=== PATIENT | female | born 1955 | race Caucasian/White ===

== ENCOUNTER 2017-01-01 23:25 | Emergency (ER) | payer MEDICARE ==
[~2017-01-01 23:25] MED LIST: ALLO100T PO; CLON0.2T PO; DEPA500T PO; FURO20TA PO; GABA600T PO; GLIP5TAB8 PO; K-TA10TA PO; LAMO100T PO; LISD70 PO; LORA1TAB12 PO; MOBI15TA PO; OXYC1TAB35 PO; SIMV20TA PO; VERA1TAB10 PO; ZOLP10TA3 PO
[2017-01-01 23:27] VITALS: BP 227/93; RESP 16; TEMP 97.1; O2SAT 97
[2017-01-02] VITALS: BP 192/100; PULSE 107
[2017-01-02] MEDS ORDERED: diphenhydrAMINE HCL 50 MG/ML VIAL IV PUSH ONE (00:15)
[2017-01-02] MEDS ORDERED: ACETAMINOPHEN 325 MG TAB PO ONE (00:15)
[2017-01-02] MEDS ORDERED: PROCHLORPERAZINE INJ 10 MG/2 ML VIAL IV PUSH ONE (00:15)
[2017-01-02 00:31] LABS: AUTOMATED NEUTROPHIL # 5.9 TH/MM3 (1.8-7.7); BASOPHIL # 0.1 TH/MM3 (0-0.2); BASOPHIL % 0.7 % (0.0-2.0); EOSINOPHIL # 0.4 TH/MM3 (0-0.4); EOSINOPHIL % 4.2 % (0.0-4.0); HEMATOCRIT 39.5 % (35.0-46.0); HEMO FLAGS DIFF FINAL; LYMPH % 28.8 % (9.0-44.0); LYMPHOCYTE # 2.9 TH/MM3 (1.0-4.8); MEAN CELL VOLUME 87.8 FL (80.0-100.0); MEAN CORPUSCULAR HEMOGLOBIN 29.4 PG (27.0-34.0); MEAN CORPUSCULAR HGB CONC 33.4 % (32.0-36.0); MONO % 7.5 % (0.0-8.0); NEUT % 58.8 % (16.0-70.0); PLATELET COUNT 277 TH/MM3 (150-450); RED CELL DISTRIBUTION WIDTH 13.9 % (11.6-17.2); WHITE BLOOD COUNT 10.1 TH/MM3 (4.0-11.0)
[2017-01-02 00:43] LABS: APTT (PATIENT) 27.8 SEC (24.3-30.1); PROTHROMBIN TIME - PATIENT 11.5 SEC (9.8-11.6)
--- NOTE | 2017-01-02 00:51 | RADRPT ---
EXAM DATE/TIME: 01/02/2017 00:24 [facility] COMPARISON: CHEST PA & LAT, July 12, 2015, 17:39. INDICATIONS : High blood pressure with headache and dizziness. MEDICAL HISTORY : Diabetes mellitus type II. Hypertension Hypercholesterolemia. GERD, Uterine cancer SURGICAL HISTORY : Cholecystectomy. Hysterectomy. ENCOUNTER: Initial ACUITY: 1 day PAIN SCORE: 7/10 LOCATION: Bilateral chest FINDINGS: A single view of the chest demonstrates the lungs to be symmetrically aerated without evidence of mas s, infiltrate or effusion. The cardiomediastinal contours are unremarkable. Osseous structures are intact. CONCLUSION: No acute disease. Richard Olivares MD on January 02, 2017 at 0:49 Board Certified Radiologist. This report was verified electronically.
[2017-01-02 00:56] LABS: ALKALINE PHOSPHATASE 153 U/L (45-117); TOTAL BILIRUBIN ADULT 0.3 MG/DL (0.2-1.0)
[2017-01-02 01:00] VITALS: BP 187/103; PULSE 107
[2017-01-02 01:00] LABS: ALT (GPT) 49 U/L (10-53); ANION GAP 7 MEQ/L (5-15); AST (GOT) 38 U/L (15-37); BICARBONATE 31.7 MEQ/L (21.0-32.0); BLOOD UREA NITROGEN 14 MG/DL (7-18); CHLORIDE 102 MEQ/L (98-107); GLOMERULAR FILTRATION RATE 70 ML/MIN (>89); SODIUM (NA) 141 MEQ/L (136-145)
[2017-01-02] MEDS ORDERED: LABETALOL HCL 100 MG/20 ML VIAL IV PUSH ONE (01:00)
--- NOTE | 2017-01-02 01:27 | RADRPT ---
EXAM DATE/TIME: 01/02/2017 01:12 [facility] COMPARISON: CT BRAIN W/O CONTRAST, June 02, 2016, 19:53. INDICATIONS : Cephalgia and dysphasia. RADIATION DOSE: 41.74 CTDIvol (mGy) MEDICAL HISTORY : Gastroesophageal reflux disease. Hernia, hiatal. Diabetes mellitus type 2.Hypertension. Cervical canc er. SURGICAL HISTORY : Hysterectomy. Cholecystectomy. ENCOUNTER: Initial ACUITY: 1 day PAIN SCALE: 10/10 LOCATION: cranial TECHNIQUE: Multiple contiguous axial images were obtained of the head. Using automated exposure control and adj ustment of the mA and/or kV according to patient size, radiation dose was kept as low as reasonably a chievable to obtain optimal diagnostic quality images. FINDINGS: CEREBRUM: The ventricles are normal for age. No evidence of midline shift, mass lesion, hemorrhage or acute in farction. No extra-axial fluid collections are seen. POSTERIOR FOSSA: The cerebellum and brainstem are intact. The 4th ventricle is midline. The cerebellopontine angle i s unremarkable. EXTRACRANIAL: The visualized portion of the orbits is intact. SKULL: The calvaria is intact. No evidence of skull fracture. CONCLUSION: Unremarkable noncontrast CT. Richard Olivares MD on January 02, 2017 at 1:25 Board Certified Radiologist. This report was verified electronically.
[2017-01-02 02:00] VITALS: BP 195/85
[2017-01-02 02:15] VITALS: BP 151/68; PULSE 94
[2017-01-02 02:30] VITALS: BP 144/55; PULSE 86
--- NOTE | 2017-01-02 02:39 | PD ---
HPI Chief Complaint: Hypertension Time Seen by Provider: 23:56 Travel History International Travel<30 days: No Contact w/Intl Traveler<30days: No Traveled to known affect area: No History of Present Illness HPI Patient is a 61 year old female who comes in complaining of headache and dizziness. Per , he brought her in because of high blood pressure. She chronically has headaches and dizziness. She takes oxycodone q 3 hrs for pain. She has not had any head trauma. She denies nausea or vomiting. She denies chest pain. Her says that she has been having issues controlling her blood pressure and was started on a new medication by her doctor. He says a visiting nurse was coming to the house and monitoring her blood pressure and advised him to take it twice per day and come to the ED if it got too high. He was concerned when he got readings in the 190s systolic. PFSH Past Medical History Bipolar Disorder: Yes Depression: Yes Cancer: Yes (CERVICAL/ UTERINE CA) Cardiovascular Problems: No High Cholesterol: Yes Diabetes: Yes Patient Takes Glucophage: No Diminished Hearing: No Endocrine: No Gastrointestinal Disorders: Yes (GERD) GERD: Yes Genitourinary: No Hepatitis: No Hiatal Hernia: Yes Hypertension: Yes Immune Disorder: No Musculoskeletal: Yes (BACK PAIN, ARTHRITIS) Neurologic: Yes (VERTIGO, CHARLIE. LEG PAIN) Psychiatric: Yes (CLAUSTRAPHOBIA, BIPOLAR) Reproductive: No Respiratory: Yes (SLEEP APNEA (NO CPAP)) Sleep Apnea: Yes (no cpap) Thyroid Disease: No Tetanus Vaccination: Unknown Menopausal: Yes Past Surgical History Abdominal Surgery: Yes (LAP NICANOR) AICD: No Cholecystectomy: Yes Gynecologic Surgery: Yes (TAHBSO) Hysterectomy: Yes Joint Replacement: No Oral Surgery: Yes (all her teeth removed) Pacemaker: No Other Surgery: Yes (2 back surg) Social History Alcohol Use: No Tobacco Use: No (quit 2 yrs ago) Substance Use: No Allergies-Medications (Allergen,Severity, Reaction): Coded Allergies: Betadine (Unverified Allergy, Severe, RASH, HIVES, 01/01/17) Morphine (Unverified Allergy, Severe, RESTLESS, 01/01/17) Reported Meds & Prescriptions Reported Meds & Active Scripts Active Reported Oxycodone-Acetaminophen 7.5-325 mg Tab 1 Tab PO Q4H PRN Lorazepam 1 Mg Tab 1 Mg PO HS PRN Mobic (Meloxicam) 15 Mg Tab 15 Mg PO DAILY Zolpidem (Zolpidem Tartrate) 10 Mg Tab 10 Mg PO HS PRN Verapamil ER (Verapamil HCl) 180 Mg Tab 360 Mg PO DAILY Furosemide 20 Mg Tab 20 Mg PO DAILY Lamotrigine 100 Mg Tab 100 Mg PO DAILY Vyvanse (Lisdexamfetamine Dimesylate) 70 Mg Cap 70 Mg PO DAILY Allopurinol 100 Mg Tab 100 Mg PO DAILY K-Tab (Potassium Chloride) 10 Meq Tab 10 Meq PO DAILY Gabapentin 600 Mg Tab 600 Mg PO BID Glipizide 5 Mg Tab 5 Mg PO BIDAC Take 30 minutes before a meal [id number] M1 500 Mg Tab 1,000 Mg PO HS Z.0.clonidine Hcl0.2 0.2 Mg Tab 0.2 Mg PO BID [id number] Mg 20 Mg Tab 20 Mg PO HS Review of Systems Except as stated in HPI: all other systems reviewed are Neg General / Constitutional: No: Fever, Chills Eyes: No: Blurred Vision HENT: Positive: Headaches Cardiovascular: No: Chest Pain or Discomfort Gastrointestinal: No: Nausea, Vomiting Musculoskeletal: Positive: Edema, No: Myalgias Skin: No Rash, No Change in Pigmentation Neurologic: Positive: Dizziness, No: Weakness Physical Exam Narrative GENERAL: Awake and alert, in no acute distress. SKIN: Focused skin assessment warm/dry. HEAD: Atraumatic. Normocephalic. EYES: Pupils equal and round. No scleral icterus. Extraocular movements intact. ENT: Mucous membranes pink and moist. NECK: Trachea midline. No JVD. CARDIOVASCULAR: Regular rate and rhythm. No murmur appreciated. RESPIRATORY: No accessory muscle use. Clear to auscultation. Breath sounds equal bilaterally. GASTROINTESTINAL: Abdomen soft, non-tender, nondistended. MUSCULOSKELETAL: No obvious deformities. No clubbing. No cyanosis. Edema bilateral feet. NEUROLOGICAL: Awake and alert. No obvious cranial nerve deficits. Motor grossly within normal limits. PSYCHIATRIC: Appropriate mood and affect; insight and judgment normal. Data Data Last Documented VS Vital Signs Date Time Temp Pulse Resp B/P Pulse Ox O2 Delivery O2 Flow Rate FiO2 01/01/17 23:27 97.1 16 227/93 97 Room Air Orders Complete Blood Count With Diff (01/02/17 00:07) Comprehensive Metabolic Panel (01/02/17 00:07) Act Partial Throm Time (Ptt) (01/02/17 00:07) Prothrombin Time / Inr (Pt) (01/02/17 00:07) Ct Brain W/O Iv Contrast(Rout) (01/02/17 ) Electrocardiogram (01/02/17 ) Troponin I (01/02/17 00:07) Diphenhydramine Inj (Benadryl Inj) (01/02/17 00:15) Prochlorperazine Inj (Compazine Inj) (01/02/17 00:15) Acetaminophen (Tylenol) (01/02/17 00:15) Iv Access Insert/Monitor (01/02/17 00:07) Ecg Monitoring (01/02/17 00:07) B-Type Natriuretic Peptide (01/02/17 00:12) Chest, Single Ap (01/02/17 ) Labetalol Inj (Trandate Inj) (01/02/17 01:00) Labs Laboratory Tests Test 01/02/17 00:10 White Blood Count 10.1 TH/MM3 Red Blood Count 4.50 MIL/MM3 Hemoglobin 13.2 GM/DL Hematocrit 39.5 % Mean Corpuscular Volume 87.8 FL Mean Corpuscular Hemoglobin 29.4 PG Mean Corpuscular Hemoglobin 33.4 % Concent Red Cell Distribution Width 13.9 % Platelet Count 277 TH/MM3 Mean Platelet Volume 8.2 FL Neutrophils (%) (Auto) 58.8 % Lymphocytes (%) (Auto) 28.8 % Monocytes (%) (Auto) 7.5 % Eosinophils (%) (Auto) 4.2 % Basophils (%) (Auto) 0.7 % Neutrophils # (Auto) 5.9 TH/MM3 Lymphocytes # (Auto) 2.9 TH/MM3 Monocytes # (Auto) 0.8 TH/MM3 Eosinophils # (Auto) 0.4 TH/MM3 Basophils # (Auto) 0.1 TH/MM3 CBC Comment DIFF FINAL Differential Comment Prothrombin Time 11.5 SEC Prothromb Time International 1.0 RATIO Ratio Activated Partial 27.8 SEC Thromboplast Time Sodium Level 141 MEQ/L Potassium Level 4.0 MEQ/L Chloride Level 102 MEQ/L Carbon Dioxide Level 31.7 MEQ/L Anion Gap 7 MEQ/L Blood Urea Nitrogen 14 MG/DL Creatinine 0.83 MG/DL Estimat Glomerular Filtration 70 ML/MIN Rate Random Glucose 174 MG/DL Calcium Level 9.6 MG/DL Total Bilirubin 0.3 MG/DL Aspartate Amino Transf 38 U/L (AST/SGOT) Alanine Aminotransferase 49 U/L (ALT/SGPT) Alkaline Phosphatase 153 U/L Troponin I LESS THAN 0.02 NG/ML Total Protein 7.2 GM/DL Albumin 3.6 GM/DL MDM Medical Decision Making Medical Screen Exam Complete: Yes Emergency Medical Condition: Yes Medical Record Reviewed: Yes Interpretation(s) ECG shows sinus tachycardia at 104, no ST elevation or depression, a lot of artifact. Differential Diagnosis Headache versus hypertension versus vertigo versus electrolyte abnormality Narrative Course Patient is a 61-year-old female comes in complaining of high blood pressure. She says she has a headache and dizziness, but this is chronic for her. Exam shows no acute abnormalities. IV established, labs sent. Labs show no acute abnormalities. CT head performed shows no acute abnormalities. Chest x-ray performed shows no acute abnormalities. Patient given Tylenol, Benadryl, Compazine. She reports resolution of her symptoms. She received 10 mg of labetalol which brought her blood pressure down. She would like to go home. She is advised follow-up with her doctor. Advised to return to the ED as needed for any worsening symptoms. Diagnosis Primary Impression: High blood pressure Qualified Code: I10 - Essential hypertension Additional Impression: Headache Qualified Code: R51 - Acute nonintractable headache, unspecified headache type Patient Instructions: General Instructions, Hypertension (ED) Additional Instructions: Follow-up with your doctor regarding her blood pressure. He received labetalol today that brought her blood pressure down. Take Tylenol or ibuprofen as needed for headaches. Return to the ED as needed for any worsening symptoms. Disposition: 01 DISCHARGE HOME Condition: Stable Sarah Shelton MD Jan 02, 2017 02:38
--- NOTE | 2017-01-02 09:34 | EKG ---
Date Performed: 01/02/2017 Time Performed: 00:20:22 PTAGE: 61 years EKG: SINUS TACHYCARDIA NONSPECIFIC T-WAVE ABNORMALITY ABNORMAL RHYTHM ECG NO PREVIOUS TRACING DOCTOR: Tamir Steel Interpretating Date/Time 01/02/2017 09:29:25
== END 2017-01-02 03:24 | disposition home or self-care (01) ==
LOC: NEPC 23:25
DX: I10 Essential (primary) hypertension (principal); R51 Headache; R94.31 Abnormal electrocardiogram [ECG] [EKG]; Z85.41 Personal history of malignant neoplasm of cervix uteri; Z85.42 Personal history of malignant neoplasm of other parts of uterus
CPT/HCPCS: 70450; 71010; 80053; 83880; 84484; 85025; 85610; 85730; 93005; 96374; 96375; 99285; J0780; J1200

== ENCOUNTER 2017-02-06 18:29 | Inpatient (IN) | payer MEDICARE ==
[~2017-02-06] VITALS: Ht 162.6 cm; Wt 115.0 kg
[2017-02-06 18:38] VITALS: BP 145/99; PULSE 93; RESP 18; TEMP 98.1; O2SAT 94
[2017-02-06] MEDS ORDERED: NALOXONE HCL 2 MG/2 ML VIAL ONE (18:38)
[2017-02-06 19:02] VITALS: RESP 18; O2SAT 99
--- NOTE | 2017-02-06 19:20 | PD ---
Data Data Last Documented VS Vital Signs Date Time Temp Pulse Resp B/P Pulse Ox O2 Delivery O2 Flow Rate FiO2 02/06/17 20:06 97 18 99 Nasal Cannula 3 02/06/17 18:38 98.1 145/99 Orders Naloxone Inj (Narcan Inj) (02/06/17 18:38) Electrocardiogram (02/06/17 18:47) Complete Blood Count With Diff (02/06/17 18:47) Comprehensive Metabolic Panel (02/06/17 18:47) Prothrombin Time / Inr (Pt) (02/06/17 18:47) Act Partial Throm Time (Ptt) (02/06/17 18:47) Lactic Acid Sepsis Protocol (02/06/17 18:47) Magnesium (Mg) (02/06/17 18:47) Urinalysis - C+S If Indicated (02/06/17 18:47) Blood Culture (02/06/17 18:47) Chest, Single Ap (02/06/17 18:47) Blood Glucose (02/06/17 18:47) Ecg Monitoring (02/06/17 18:47) Iv Access Insert/Monitor (02/06/17 18:47) Oximetry (02/06/17 18:47) Oxygen Administration (02/06/17 18:47) Ct Brain W/O Iv Contrast(Rout) (02/06/17 ) Naloxone Inj (Narcan Inj) (02/06/17 19:30) Insert Temp Sensing Ingram Cath (02/06/17 19:34) B-Type Natriuretic Peptide (02/06/17 20:23) Vancomycin Inj (Vancomycin Inj) (02/06/17 20:52) Piperacil-Tazo 4.5 Gm Premix (Zosyn 4.5 (02/06/17 20:52) Admit Order (Ed Use Only) (02/06/17 20:52) Labs Laboratory Tests Test 02/06/17 19:00 White Blood Count 13.8 TH/MM3 Red Blood Count 4.61 MIL/MM3 Hemoglobin 13.5 GM/DL Hematocrit 40.7 % Mean Corpuscular Volume 88.1 FL Mean Corpuscular Hemoglobin 29.3 PG Mean Corpuscular Hemoglobin 33.3 % Concent Red Cell Distribution Width 14.0 % Platelet Count 249 TH/MM3 Mean Platelet Volume 8.5 FL Neutrophils (%) (Auto) 63.7 % Lymphocytes (%) (Auto) 23.6 % Monocytes (%) (Auto) 7.6 % Eosinophils (%) (Auto) 3.4 % Basophils (%) (Auto) 1.7 % Neutrophils # (Auto) 8.8 TH/MM3 Lymphocytes # (Auto) 3.3 TH/MM3 Monocytes # (Auto) 1.0 TH/MM3 Eosinophils # (Auto) 0.5 TH/MM3 Basophils # (Auto) 0.2 TH/MM3 CBC Comment DIFF FINAL Differential Comment Prothrombin Time 12.4 SEC Prothromb Time International 1.1 RATIO Ratio Activated Partial 28.0 SEC Thromboplast Time Urine Color YELLOW Urine Turbidity HAZY Urine pH 5.0 Urine Specific [place] 1.012 Urine Protein NEG mg/dL Urine Glucose (UA) NEG mg/dL Urine Ketones NEG mg/dL Urine Occult Blood NEG Urine Nitrite NEG Urine Bilirubin NEG Urine Urobilinogen LESS THAN 2.0 MG/DL Urine Leukocyte Esterase NEG Urine RBC LESS THAN 1 /hpf Urine WBC 2 /hpf Urine Squamous Epithelial 1 /hpf Cells Urine Amorphous Sediment RARE Microscopic Urinalysis Comment CATH-CULT NOT IND Sodium Level 137 MEQ/L Potassium Level 5.2 MEQ/L Chloride Level 100 MEQ/L Carbon Dioxide Level 29.5 MEQ/L Anion Gap 8 MEQ/L Blood Urea Nitrogen 43 MG/DL Creatinine 2.51 MG/DL Estimat Glomerular Filtration 20 ML/MIN Rate Random Glucose 162 MG/DL Lactic Acid Level 1.3 mmol/L Calcium Level 9.5 MG/DL Magnesium Level 2.3 MG/DL Total Bilirubin 0.7 MG/DL Aspartate Amino Transf 125 U/L (AST/SGOT) Alanine Aminotransferase 69 U/L (ALT/SGPT) Alkaline Phosphatase 183 U/L B-Type Natriuretic Peptide LESS THAN 2 PG/ML Total Protein 7.6 GM/DL Albumin 3.6 GM/DL MDM Supervised Visit with DANA: Yes Narrative Course I, Dr. Michel], have reviewed the advance practice practitioner's documentation and am in agreement, met with the patient face to face, made the diagnosis, and the medical decision making was done by me. *My assessment and Findings: Patient 61-year-old female apparently on hospice for lewy body dementia presents emergency department with increasing altered mental status, she does have a kerry appearance of her skin mildly diaphoretic and almost clammy. Unable to provide most of her history her is in route, afebrile here but sepsis workup has been initiated, my opinion there is no indication for aggressive fluid resuscitation or antibiotics until source of infection has been identified I see no evidence of infection on her clinical exam. She may just have worsening dementia. Peggy WORTHINGTON is working up the patient and at shift change Dr. Mays is here to assist her. Dimitrios Michel MD Feb 06, 2017 19:20
[2017-02-06] MEDS ORDERED: HYDR-3133 PO (19:23)
[2017-02-06] MEDS ORDERED: PROP10TA6 PO (19:23)
[2017-02-06] MEDS ORDERED: DIPH2.5T60 PO (19:23)
[2017-02-06] MEDS ORDERED: BREX1TAB4 PO (19:23)
[2017-02-06] MEDS ORDERED: VALS1TAB65 PO (19:23)
[2017-02-06] MEDS ORDERED: MULT1TAB61 PO (19:23)
[2017-02-06] MEDS ORDERED: OXYC1CAP PO (19:23)
[2017-02-06] MEDS ORDERED: CYCL1TAB29 PO (19:23)
[2017-02-06] MEDS ORDERED: MEMA1CAP2 PO (19:23)
[2017-02-06] MEDS ORDERED: MORP1TAB25 PO (19:24)
[2017-02-06] MEDS ORDERED: SERO200T PO (19:24)
[2017-02-06 19:28] LABS: AUTOMATED NEUTROPHIL # 8.8 TH/MM3 (1.8-7.7); BASOPHIL # 0.2 TH/MM3 (0-0.2); BASOPHIL % 1.7 % (0.0-2.0); EOSINOPHIL # 0.5 TH/MM3 (0-0.4); EOSINOPHIL % 3.4 % (0.0-4.0); HEMATOCRIT 40.7 % (35.0-46.0); HEMO FLAGS DIFF FINAL; LYMPH % 23.6 % (9.0-44.0); LYMPHOCYTE # 3.3 TH/MM3 (1.0-4.8); MEAN CELL VOLUME 88.1 FL (80.0-100.0); MEAN CORPUSCULAR HEMOGLOBIN 29.3 PG (27.0-34.0); MEAN CORPUSCULAR HGB CONC 33.3 % (32.0-36.0); MONO % 7.6 % (0.0-8.0); NEUT % 63.7 % (16.0-70.0); PLATELET COUNT 249 TH/MM3 (150-450); RED BLOOD COUNT 4.61 MIL/MM3 (4.00-5.30); WHITE BLOOD COUNT 13.8 TH/MM3 (4.0-11.0)
[2017-02-06] MEDS ORDERED: NALOXONE HCL 2 MG/2 ML VIAL IV PUSH ONE (19:30)
[2017-02-06 19:38] LABS: BLOOD, URINE NEG (NEG); GLUCOSE,URINE NEG (NEG); KETONE, URINE NEG (NEG); NITRITE,URINE NEG (NEG); SQUAMOUS EPITHELIAL CELL URINE 1 /hpf (0-5); URINE COLOR YELLOW (YELLW/STRAW)
[2017-02-06 19:39] LABS: COMMENT (UR) CATH-CULT NOT IND; CULTURE IF INDICATED CATH CULTURE NOT IND
--- NOTE | 2017-02-06 19:42 | PD ---
HPI Chief Complaint: Altered Mental Status Time Seen by Provider: 18:50 Travel History International Travel<30 days: No Contact w/Intl Traveler<30days: No Traveled to known affect area: No History of Present Illness HPI Patient is a 61-year-old female presenting to the emergency department for evaluation for altered mental status. Per EMS patient has been sleeping fairly consistently for the last 2 days, she woke up this evening and although she is alert and oriented 4 her speech appears to be slurred. She has had increased swelling in her legs with a redness to her lower extremities. Currently on hospice for early onset of dementia. Patient's past medical history significant for neuropathy, anxiety, diabetes, hypertension, hyperlipidemia, peripheral edema. Patient takes lorazepam, Flexeril, oxycodone, morphine at home which is dosed by her significant other. PFSH Past Medical History Bipolar Disorder: Yes Depression: Yes Cancer: Yes (CERVICAL/ UTERINE CA) Cardiovascular Problems: No High Cholesterol: Yes Dementia: Yes (LEWY BODY DEMENTIA) Diabetes: Yes Patient Takes Glucophage: No Diminished Hearing: No Endocrine: No GERD: Yes Genitourinary: No Hepatitis: No Hiatal Hernia: Yes Hypertension: Yes Immune Disorder: No Neurologic: Yes (VERTIGO) Reproductive: No Sleep Apnea: Yes (no cpap) Thyroid Disease: No Menopausal: Yes Past Surgical History AICD: No Cholecystectomy: Yes Hysterectomy: Yes Joint Replacement: No Oral Surgery: Yes (all her teeth removed) Pacemaker: No Other Surgery: Yes (2 back surg) Social History Alcohol Use: No Tobacco Use: No (quit 2 yrs ago) Substance Use: No Allergies-Medications (Allergen,Severity, Reaction): Coded Allergies: Betadine (Unverified Allergy, Severe, RASH, HIVES, 02/06/17) Morphine (Unverified Allergy, Severe, RESTLESS, 02/06/17) Reported Meds & Prescriptions Reported Meds & Active Scripts Active Reported Morphine ER (Morphine Sulfate) 30 Mg Tab 30 Mg PO BID Seroquel (Quetiapine Fumarate) 200 Mg Tab 200 Mg PO HS Hydroxyzine HCl 25 Mg Tab 25 Mg PO QID PRN Diphenatol 2.5-0.025 mg (Diphenoxylate W/ Atropine) 1 Tab Tab 1 Tab PO DAILY PRN Oxycodone (Oxycodone HCl) 5 Mg Cap 5 Mg PO Q3HR PRN Flexeril (Cyclobenzaprine HCl) 10 Mg Tab 10 Mg PO DAILY PRN Rexulti (Brexpiprazole) 2 Mg Tab 2 Mg PO DAILY Namzaric (Memantine-Donepezil) 28-10 Mg Cap 1 Cap PO HS Centrum Silver Women Tablet (Multivit-Min/Iron/Folic/Lutein) 1 Each Tablet 1 Tab PO DAILY Valsartan 160 Mg Tab 160 Mg PO DAILY Propranolol (Propranolol HCl) 10 Mg Tab 10 Mg PO Q12HR Lorazepam 1 Mg Tab 1 Mg PO Q3HR PRN Mobic (Meloxicam) 15 Mg Tab 15 Mg PO DAILY Verapamil ER (Verapamil HCl) 180 Mg Tab 240 Mg PO DAILY Furosemide 20 Mg Tab 20 Mg PO DAILY Lamotrigine 100 Mg Tab 100 Mg PO DAILY Allopurinol 100 Mg Tab 100 Mg PO DAILY K-Tab (Potassium Chloride) 10 Meq Tab 10 Meq PO DAILY Gabapentin 600 Mg Tab 600 Mg PO BID Glipizide 5 Mg Tab 5 Mg PO BIDAC Take 30 minutes before a meal Clonidine Hcl (Clonidine HCl) 0.2 Mg Tab 0.2 Mg PO BID Simvastatin 20 Mg Tab 20 Mg PO HS Review of Systems ROS Limitations: Altered Mental Status Except as stated in HPI: all other systems reviewed are Neg Neurologic: Positive: Change in Mentation Physical Exam Narrative GENERAL: Obese, well-developed, drowsy female. Resting in no acute distress. SKIN: Warm and dry. HEAD: Atraumatic. Normocephalic. EYES: Pupils equal and round. No scleral icterus. No injection or drainage. ENT: No nasal bleeding or discharge. Mucous membranes pink and moist. NECK: Trachea midline. No JVD. CARDIOVASCULAR: Regular rate and rhythm. RESPIRATORY: No accessory muscle use. Diminished GASTROINTESTINAL: Abdomen obese, soft, non-tender, nondistended. Hepatic and splenic margins not palpable. Positive bowel sounds MUSCULOSKELETAL: Extremities without clubbing, cyanosis. Erythema and 2+ edema to bilateral lower extremities NEUROLOGICAL: Drowsy, arousable, alert and oriented 3. No obvious cranial nerve deficits. Motor grossly within normal limits. Five out of 5 muscle strength in the arms and legs. Slow speech. PSYCHIATRIC: Flat mood and affect; insight and judgment normal. Data Data Last Documented VS Vital Signs Date Time Temp Pulse Resp B/P Pulse Ox O2 Delivery O2 Flow Rate FiO2 02/06/17 20:06 97 18 99 Nasal Cannula 3 02/06/17 18:38 98.1 145/99 Orders Naloxone Inj (Narcan Inj) (02/06/17 18:38) Electrocardiogram (02/06/17 18:47) Complete Blood Count With Diff (02/06/17 18:47) Comprehensive Metabolic Panel (02/06/17 18:47) Prothrombin Time / Inr (Pt) (02/06/17 18:47) Act Partial Throm Time (Ptt) (02/06/17 18:47) Lactic Acid Sepsis Protocol (02/06/17 18:47) Magnesium (Mg) (02/06/17 18:47) Urinalysis - C+S If Indicated (02/06/17 18:47) Blood Culture (02/06/17 18:47) Chest, Single Ap (02/06/17 18:47) Blood Glucose (02/06/17 18:47) Ecg Monitoring (02/06/17 18:47) Iv Access Insert/Monitor (02/06/17 18:47) Oximetry (02/06/17 18:47) Oxygen Administration (02/06/17 18:47) Ct Brain W/O Iv Contrast(Rout) (02/06/17 ) Naloxone Inj (Narcan Inj) (02/06/17 19:30) Insert Temp Sensing Ingram Cath (02/06/17 19:34) B-Type Natriuretic Peptide (02/06/17 20:23) Vancomycin Inj (Vancomycin Inj) (02/06/17 20:52) Piperacil-Tazo 4.5 Gm Premix (Zosyn 4.5 (02/06/17 20:52) Admit Order (Ed Use Only) (02/06/17 20:52) Labs Laboratory Tests Test 02/06/17 19:00 White Blood Count 13.8 TH/MM3 Red Blood Count 4.61 MIL/MM3 Hemoglobin 13.5 GM/DL Hematocrit 40.7 % Mean Corpuscular Volume 88.1 FL Mean Corpuscular Hemoglobin 29.3 PG Mean Corpuscular Hemoglobin 33.3 % Concent Red Cell Distribution Width 14.0 % Platelet Count 249 TH/MM3 Mean Platelet Volume 8.5 FL Neutrophils (%) (Auto) 63.7 % Lymphocytes (%) (Auto) 23.6 % Monocytes (%) (Auto) 7.6 % Eosinophils (%) (Auto) 3.4 % Basophils (%) (Auto) 1.7 % Neutrophils # (Auto) 8.8 TH/MM3 Lymphocytes # (Auto) 3.3 TH/MM3 Monocytes # (Auto) 1.0 TH/MM3 Eosinophils # (Auto) 0.5 TH/MM3 Basophils # (Auto) 0.2 TH/MM3 CBC Comment DIFF FINAL Differential Comment Prothrombin Time 12.4 SEC Prothromb Time International 1.1 RATIO Ratio Activated Partial 28.0 SEC Thromboplast Time Urine Color YELLOW Urine Turbidity HAZY Urine pH 5.0 Urine Specific [place] 1.012 Urine Protein NEG mg/dL Urine Glucose (UA) NEG mg/dL Urine Ketones NEG mg/dL Urine Occult Blood NEG Urine Nitrite NEG Urine Bilirubin NEG Urine Urobilinogen LESS THAN 2.0 MG/DL Urine Leukocyte Esterase NEG Urine RBC LESS THAN 1 /hpf Urine WBC 2 /hpf Urine Squamous Epithelial 1 /hpf Cells Urine Amorphous Sediment RARE Microscopic Urinalysis Comment CATH-CULT NOT IND Sodium Level 137 MEQ/L Potassium Level 5.2 MEQ/L Chloride Level 100 MEQ/L Carbon Dioxide Level 29.5 MEQ/L Anion Gap 8 MEQ/L Blood Urea Nitrogen 43 MG/DL Creatinine 2.51 MG/DL Estimat Glomerular Filtration 20 ML/MIN Rate Random Glucose 162 MG/DL Lactic Acid Level 1.3 mmol/L Calcium Level 9.5 MG/DL Magnesium Level 2.3 MG/DL Total Bilirubin 0.7 MG/DL Aspartate Amino Transf 125 U/L (AST/SGOT) Alanine Aminotransferase 69 U/L (ALT/SGPT) Alkaline Phosphatase 183 U/L Total Protein 7.6 GM/DL Albumin 3.6 GM/DL MDM Medical Decision Making Medical Screen Exam Complete: Yes Emergency Medical Condition: Yes Interpretation(s) Vital Signs Date Time Temp Pulse Resp B/P Pulse Ox O2 Delivery O2 Flow Rate FiO2 02/06/17 19:02 99 Nasal Cannula 3 02/06/17 19:02 18 99 Nasal Cannula 3 02/06/17 18:38 98.1 93 18 145/99 94 Differential Diagnosis UTI versus sepsis versus cellulitis versus progression of dementia versus CVA versus metabolic abnormality Narrative Course Patient is a 61-year-old female presenting for evaluation of altered mental status. Patient is on several narcotic medications that could likely alter her mental status, Narcan 1 mg given in the emergency department after the patient was assessed. Patient had no significant change in her mental status after Narcan was administered. Urinary catheter placed, patient placed on telemetry monitoring and continuous pulse oximetry. Labs and imaging ordered and pending. Chest x-ray shows left lower lobe atelectasis CBC with a white count of 13.8 Chemistry with elevated BUN and creatinine 43/2.51, AST and ALT elevated 125/69 , potassium 5.2, lactic acid 1.3. CT brain is unremarkable Urinalysis is unremarkable Patient will be admitted due to altered mental status, acute renal failure, transaminitis. There was a question initially as to who would be admitting patient since she is under [facility] hospice care. Dr. Sanchez did accept admission. orders placed. Empiric antibiotics ordered Sepsis Criteria SIRS Criteria (2 or more): Heart rate over 90, WBC > 73380, < 4000 or > 10% bands Severe Sepsis (+one): Acute Oliguria/Renal Failure Diagnosis Primary Impression: SIRS (systemic inflammatory response syndrome) Additional Impressions: Altered mental status Qualified Code: R41.82 - Altered mental status, unspecified altered mental status type Acute renal failure Qualified Code: N17.9 - Acute renal failure, unspecified acute renal failure type Transaminitis Admitting Information Admitting Physician Requests: Admit Condition: Stable Peggy Nichols [facility] Feb 06, 2017 19:42
[2017-02-06 19:46] LABS: ALT (GPT) 69 U/L (10-53)
[2017-02-06 19:49] LABS: ALKALINE PHOSPHATASE 183 U/L (45-117); TOTAL BILIRUBIN ADULT 0.7 MG/DL (0.2-1.0)
--- NOTE | 2017-02-06 19:49 | RADRPT ---
EXAM DATE/TIME: 02/06/2017 19:28 [facility] COMPARISON: CT BRAIN W/O CONTRAST, January 02, 2017, 1:12. INDICATIONS : Lethargic and difficulty ambulating. RADIATION DOSE: 39.63 CTDIvol (mGy) MEDICAL HISTORY : Dementia. Hypertension. Diabetes mellitus type 2.Cervical cancer. Uterine cancer. SURGICAL HISTORY : Cholecystectomy. Hysterectomy. ENCOUNTER: Initial ACUITY: 1 day PAIN SCALE: 0/10 LOCATION: cranial TECHNIQUE: Multiple contiguous axial images were obtained of the head. Using automated exposure control and adj ustment of the mA and/or kV according to patient size, radiation dose was kept as low as reasonably a chievable to obtain optimal diagnostic quality images. DICOM format image data is available electro nically for review and comparison. FINDINGS: There is no evidence for intracranial hemorrhage, mass effect, mass lesions, edema, or extra-axial fl uid collections. The visualized bony structures appear intact. The ventricles are normal size for t he patient's age. There are no signs of acute infarction for technique. CONCLUSION: Unremarkable study. KJosé Brasher MD on February 06, 2017 at 19:46 Board Certified Radiologist. This report was verified electronically.
--- NOTE | 2017-02-06 19:53 | RADRPT ---
EXAM DATE/TIME: 02/06/2017 18:46 [facility] COMPARISON: CHEST SINGLE AP, January 02, 2017, 0:24. INDICATIONS : Wheezing MEDICAL HISTORY : Diabetes mellitus type II. Hypertension Hypercholesterolemia. GERD, SURGICAL HISTORY : Cholecystectomy. Hysterectomy. ENCOUNTER: Initial ACUITY: 1 day PAIN SCORE: 0/10 LOCATION: chest FINDINGS: Slight linear atelectasis is seen left lung base. There is no appreciable pleural effusion for techni que. Heart and mediastinum are unremarkable. CONCLUSION: Slight linear atelectasis is seen left lung base. Shirley Brasher MD on February 06, 2017 at 19:51 Board Certified Radiologist. This report was verified electronically.
[2017-02-06 20:01] LABS: ANION GAP 8 MEQ/L (5-15); AST (GOT) 125 U/L (15-37); BICARBONATE 29.5 MEQ/L (21.0-32.0); BLOOD UREA NITROGEN 43 MG/DL (7-18); CHLORIDE 100 MEQ/L (98-107); GLOMERULAR FILTRATION RATE 20 ML/MIN (>89); MAGNESIUM 2.3 MG/DL (1.5-2.5); SODIUM (NA) 137 MEQ/L (136-145)
[2017-02-06 20:02] LABS: POTASSIUM 5.2 MEQ/L (3.5-5.1)
[2017-02-06 20:07] LABS: INTERNATIONAL NORMALIZED RATIO 1.1 RATIO; PROTHROMBIN TIME - PATIENT 12.4 SEC (9.8-11.6)
[2017-02-06] MEDS ORDERED: PIPERACIL-TAZO 4.5 GM PREMIX 100 ML IV STA (20:52)
[2017-02-06] MEDS ORDERED: VANCOMYCIN INJ 1,000 MG in SODIUM CHLOR 0.9% 250 ML INJ 250 ML IV STA (20:52)
[2017-02-06 21:16] VITALS: BP 154/67; PULSE 102; RESP 20; TEMP 98.3; O2SAT 97
[2017-02-06] MEDS ORDERED: SODIUM CHLORIDE 0.9% FLUSH 10 ML FLUSH IV FLUSH PRN (22:15)
[2017-02-06] MEDS ORDERED: NALOXONE HCL 0.4 MG/ML AMP IV PRN (22:15)
[2017-02-06] MEDS ORDERED: SENNOSIDES 8.6 MG TAB PO PRN (22:15)
[2017-02-06] MEDS ORDERED: LACTULOSE SYRUP 20 GM/30 ML CUP PO PRN (22:15)
[2017-02-06] MEDS ORDERED: BISACODYL 10 MG SUPP RECTAL PRN (22:15)
[2017-02-06] MEDS ORDERED: MAGNESIUM HYDROXIDE SUSP 30 ML CUP PO PRN (22:15)
--- NOTE | 2017-02-06 22:20 | HHI.HP ---
HPI Service [facility] Hospitalists Primary Care Physician Osmin Caicedo M.D. Admission Diagnosis altered mental status, acute renal failure, transaminitis. Chief Complaint: altered mental status over last 36hours Travel History International Travel<30 Days: No Contact w/Intl Traveler <30 Da: No Traveled to Known Affected Are: No History of Present Illness Patient is a 61-year-old female presenting to the emergency department for evaluation for altered mental status. Per EMS patient has been sleeping fairly consistently for the last 2 days, she woke up this evening and although she is alert and oriented 4 her speech appears to be slurred. She has had increased swelling in her legs with a redness to her lower extremities. Currently on hospice for early onset of dementia. Patient's past medical history significant for neuropathy, anxiety, diabetes, hypertension, hyperlipidemia, peripheral edema. Patient takes lorazepam, Flexeril, oxycodone, morphine at home which is dosed by her significant other. According to Hospice just increased her morphine to 30 and he gave her one dose at 30 yesterday and seems to be associated with the confusion,also has increase in WBC count and does have bilateral cellulitis lower extremities with chronic edema and has been on diuretic therapy and lab also show renal insufficency with cr >2 . Patient for several months has had frequent falls hallucinations and has been seen by several doctors and about 6 months ago was DX with lewy body dementia and is on multiple medicines from both neurology and psychiatry. Review of Systems ROS Limitations: Altered Mental Status Constitutional: COMPLAINS OF: Fatigue Cardiovascular: COMPLAINS OF: Lower Extremity Edema Other redness lower extremities Past Family Social History Past Medical History Lewy body dementia-on hospice for that reason,hypertension,hx ca uterine dm, bipolar disorder chronic pain Past Surgical History gallbladder,hysterectomy,teeth removed 2 back surgeries Reported Medications Morphine ER (Morphine Sulfate) 30 Mg Tab 30 Mg PO BID Seroquel (Quetiapine Fumarate) 200 Mg Tab 200 Mg PO HS Hydroxyzine HCl 25 Mg Tab 25 Mg PO QID PRN Diphenatol 2.5-0.025 mg (Diphenoxylate W/ Atropine) 1 Tab Tab 1 Tab PO DAILY PRN Oxycodone (Oxycodone HCl) 5 Mg Cap 5 Mg PO Q3HR PRN Flexeril (Cyclobenzaprine HCl) 10 Mg Tab 10 Mg PO DAILY PRN Rexulti (Brexpiprazole) 2 Mg Tab 2 Mg PO DAILY Namzaric (Memantine-Donepezil) 28-10 Mg Cap 1 Cap PO HS Centrum Silver Women Tablet (Multivit-Min/Iron/Folic/Lutein) 1 Each Tablet 1 Tab PO DAILY Valsartan 160 Mg Tab 160 Mg PO DAILY Propranolol (Propranolol HCl) 10 Mg Tab 10 Mg PO Q12HR Lorazepam 1 Mg Tab 1 Mg PO Q3HR PRN Mobic (Meloxicam) 15 Mg Tab 15 Mg PO DAILY Verapamil ER (Verapamil HCl) 180 Mg Tab 240 Mg PO DAILY Furosemide 20 Mg Tab 20 Mg PO DAILY Lamotrigine 100 Mg Tab 100 Mg PO DAILY Allopurinol 100 Mg Tab 100 Mg PO DAILY K-Tab (Potassium Chloride) 10 Meq Tab 10 Meq PO DAILY Gabapentin 600 Mg Tab 600 Mg PO BID Glipizide 5 Mg Tab 5 Mg PO BIDAC Take 30 minutes before a meal Clonidine Hcl (Clonidine HCl) 0.2 Mg Tab 0.2 Mg PO BID Simvastatin 20 Mg Tab 20 Mg PO HS Allergies: Coded Allergies: Betadine (Unverified Allergy, Severe, RASH, HIVES, 02/06/17) Morphine (Unverified Allergy, Severe, RESTLESS, 02/06/17) Social History former smoker Physical Exam Vital Signs GENERAL: Well-nourished, well-developed patient. SKIN: Warm and dry. HEAD: Normocephalic. EYES: No scleral icterus. No injection or drainage. NECK: Supple, trachea midline. No JVD or lymphadenopathy. CARDIOVASCULAR: Regular rate and rhythm without murmurs, gallops, or rubs. RESPIRATORY: Breath sounds equal bilaterally. No accessory muscle use. GASTROINTESTINAL: Abdomen soft, non-tender, nondistended. MUSCULOSKELETAL: No cyanosis, or edema. BACK: Nontender without obvious deformity. No CVA tenderness. EXTREMITIES: bilateral plus 3 edema with bilateral redness to lower extremities NEURO-oriented some upper and lower motor strength decrease Vital Signs Date Time Temp Pulse Resp B/P Pulse Ox O2 Delivery O2 Flow Rate FiO2 02/06/17 21:16 98.3 102 20 154/67 97 Nasal Cannula 3 02/06/17 20:06 97 18 99 Nasal Cannula 3 02/06/17 19:02 99 Nasal Cannula 3 02/06/17 19:02 18 99 Nasal Cannula 3 02/06/17 18:38 98.1 93 18 145/99 94 Laboratory Laboratory Tests Test 02/06/17 19:00 White Blood Count 13.8 Red Blood Count 4.61 Hemoglobin 13.5 Hematocrit 40.7 Mean Corpuscular Volume 88.1 Mean Corpuscular Hemoglobin 29.3 Mean Corpuscular Hemoglobin 33.3 Concent Red Cell Distribution Width 14.0 Platelet Count 249 Mean Platelet Volume 8.5 Neutrophils (%) (Auto) 63.7 Lymphocytes (%) (Auto) 23.6 Monocytes (%) (Auto) 7.6 Eosinophils (%) (Auto) 3.4 Basophils (%) (Auto) 1.7 Neutrophils # (Auto) 8.8 Lymphocytes # (Auto) 3.3 Monocytes # (Auto) 1.0 Eosinophils # (Auto) 0.5 Basophils # (Auto) 0.2 CBC Comment DIFF FINAL Differential Comment Prothrombin Time 12.4 Prothromb Time International 1.1 Ratio Activated Partial 28.0 Thromboplast Time Urine Color YELLOW Urine Turbidity HAZY Urine pH 5.0 Urine Specific [place] 1.012 Urine Protein NEG Urine Glucose (UA) NEG Urine Ketones NEG Urine Occult Blood NEG Urine Nitrite NEG Urine Bilirubin NEG Urine Urobilinogen LESS THAN 2.0 Urine Leukocyte Esterase NEG Urine RBC LESS THAN 1 Urine WBC 2 Urine Squamous Epithelial 1 Cells Urine Amorphous Sediment RARE Microscopic Urinalysis Comment CATH-CULT NOT IND Sodium Level 137 Potassium Level 5.2 Chloride Level 100 Carbon Dioxide Level 29.5 Anion Gap 8 Blood Urea Nitrogen 43 Creatinine 2.51 Estimat Glomerular Filtration 20 Rate Random Glucose 162 Lactic Acid Level 1.3 Calcium Level 9.5 Magnesium Level 2.3 Total Bilirubin 0.7 Aspartate Amino Transf 125 (AST/SGOT) Alanine Aminotransferase 69 (ALT/SGPT) Alkaline Phosphatase 183 B-Type Natriuretic Peptide LESS THAN 2 Total Protein 7.6 Albumin 3.6 Date/Time Procedure Status Source Growth 02/06/17 19:05 Aerobic Blood Culture Received Blood Peripheral Pending 02/06/17 19:05 Anaerobic Blood Culture Received Blood Peripheral Pending Result Diagram: 02/06/17 1900 02/06/17 1900 Imaging Last 24 hours Impressions Chest X-Ray 02/06/17 1847 Signed Impressions: Service Date/Time: Monday, February 06, 2017 18:46 - CONCLUSION: Slight linear atelectasis is seen left lung base. K. Eugenio Brasher MD Head CT 02/06/17 0000 Signed Impressions: Service Date/Time: Monday, February 06, 2017 19:28 - CONCLUSION: Unremarkable study. Shirley Eugenio Brasher MD Course in er was started on zoysn IV for possible cellulitis Assessment and Plan Problem List: (1) Altered mental status Status: Acute Plan: The changes in MS could be related to use of morphine which now is on hold will follow up labs patient was given narcan in er (2) Edema Status: Chronic Plan: is on bid bumex which i will hold for now as renal function is elevated will recheck labs (3) Acute renal failure Status: Acute Plan: may be related to component of dehydration with chronic diuretic use Assessment and Plan further plan as case develops and holding of morphine ,patient is on multiple PSY and Neuro meds which also can cause a change in MS but the acute episode seems to be associated with morphine. Code Status full Discussed Condition With patient and Physician Certification 2 Midnight Certification Type: Admission for Inpatient Services Order for Inpatient Services The services are ordered in accordance with Medicare regulations or non- Medicare payer requirements, as applicable. In the case of services not specified as inpatient-only, they are appropriately provided as inpatient services in accordance with the 2-midnight benchmark. Estimated LOS (days): 3 3 days is the estimated time the patient will need to remain in the hospital, assuming treatment plan goals are met and no additional complications. Post-Hospital Plan: Not yet determined Problem Qualifiers (1) Altered mental status: Qualified Code: R41.82 - Altered mental status, unspecified altered mental status type (2) Acute renal failure: Qualified Code: N17.9 - Acute renal failure, unspecified acute renal failure type Aguilar Sanchez MD Feb 06, 2017 22:20
[2017-02-06] MEDS: ENOXAPARIN SODIUM 30 MG/0.3 ML SYRINGE SQ SCH (22:56)
[2017-02-06 23:41] VITALS: BP 164/82; PULSE 101; RESP 18; TEMP 97.4; O2SAT 94
[2017-02-07] VITALS (7 sets, daily range): BP systolic 100–212; BP diastolic 58–100; PULSE 70–107; RESP 17–20; TEMP 96.2–99; O2SAT 94–99
[2017-02-07 08:28] LABS: AUTOMATED NEUTROPHIL # 7.2 TH/MM3 (1.8-7.7); BASOPHIL % 0.4 % (0.0-2.0); EOSINOPHIL # 0.4 TH/MM3 (0-0.4); EOSINOPHIL % 3.7 % (0.0-4.0); HEMATOCRIT 41.4 % (35.0-46.0); HEMO FLAGS DIFF FINAL; LYMPH % 24.3 % (9.0-44.0); LYMPHOCYTE # 2.7 TH/MM3 (1.0-4.8); MEAN CELL VOLUME 88.5 FL (80.0-100.0); MEAN CORPUSCULAR HEMOGLOBIN 28.7 PG (27.0-34.0); MEAN CORPUSCULAR HGB CONC 32.4 % (32.0-36.0); MONO % 7.7 % (0.0-8.0); NEUT % 63.9 % (16.0-70.0); PLATELET COUNT 240 TH/MM3 (150-450); RED BLOOD COUNT 4.68 MIL/MM3 (4.00-5.30); RED CELL DISTRIBUTION WIDTH 14.1 % (11.6-17.2); WHITE BLOOD COUNT 11.2 TH/MM3 (4.0-11.0)
[2017-02-07 08:56] LABS: ALKALINE PHOSPHATASE 174 U/L (45-117); ALT (GPT) 63 U/L (10-53); ANION GAP 9 MEQ/L (5-15); AST (GOT) 87 U/L (15-37); BICARBONATE 29.4 MEQ/L (21.0-32.0); BLOOD UREA NITROGEN 32 MG/DL (7-18); CHLORIDE 102 MEQ/L (98-107); GLOMERULAR FILTRATION RATE 37 ML/MIN (>89); POTASSIUM 3.9 MEQ/L (3.5-5.1); SODIUM (NA) 140 MEQ/L (136-145); TOTAL BILIRUBIN ADULT 0.6 MG/DL (0.2-1.0)
[2017-02-07] MEDS: SODIUM CHLORIDE 0.9% FLUSH 10 ML FLUSH IV FLUSH SCH ×2 (08:58→20:43)
[2017-02-07] MEDS: ALLOPURINOL 100 MG TAB PO SCH (08:58)
[2017-02-07] MEDS: VALSARTAN 160 MG TAB PO SCH (08:59)
[2017-02-07] MEDS: lamoTRIgine 100 MG TAB PO SCH (09:00)
[2017-02-07] MEDS ORDERED: BREXPIPRAZOLE 2 MG PO SCH (09:00)
[2017-02-07] MEDS: cloNIDine HCL 0.2 MG TAB PO SCH ×2 (09:00→20:42)
[2017-02-07] MEDS: GABAPENTIN 300 MG CAP PO SCH ×2 (09:00→20:43)
[2017-02-07] MEDS: glipiZIDE 5 MG TAB PO SCH ×2 (09:00→17:11)
[2017-02-07] MEDS: DOCUSATE SODIUM 50 MG/SENNA 8.6 MG TAB PO SCH ×2 (09:00→20:43)
[2017-02-07] MEDS: PROPRANOLOL HCL 10 MG TAB PO SCH ×2 (09:06→20:42)
[2017-02-07] MEDS: VERAPAMIL HCL 240 MG SUSTAINED RELEASE TAB PO SCH (09:06)
[2017-02-07] MEDS ORDERED: LORazepam 1 MG TAB PO PRN (09:45)
[2017-02-07] MEDS ORDERED: DEXTROSE 50% IN WATER 50 ML VIAL(D50) IV PRN (09:45)
[2017-02-07] MEDS ORDERED: CYCLOBENZAPRINE HCL 10 MG TAB PO PRN (09:45)
[2017-02-07] MEDS ORDERED: GLUCAGON 1 MG/ML VIAL OTHER PRN (09:45)
[2017-02-07] MEDS ORDERED: hydrOXYzine HCL 25 MG TAB PO PRN (09:45)
--- NOTE | 2017-02-07 09:56 | HHI.PR ---
Subjective Remarks Follow up for AMS, OWEN. The patient is currently awake, alert, oriented to person, place, time however is not a great historian. She is tearful and anxious. She complains of headache and pain throughout the posterior neck, worse on the right side. Denies any upper or lower extremity weakness. Denies any fevers/chills. She is unclear what happened yesterday leading up to her admission however she does recall her legs becoming weak, almost falling to the floor, however reports that Kiran was able to lower her safely. She denies hitting her head or losing consciousness. She has no other medical complaints at this time. Of note, patient has Ingram placed in the ED, she does not want it removed yet because she does not feel able to get up to use bedside commode. Objective Vitals Vital Signs Date Time Temp Pulse Resp B/P Pulse Ox O2 Delivery O2 Flow Rate FiO2 02/07/17 07:55 99.0 107 20 212/99 99 02/07/17 06:43 20 02/07/17 03:49 96.2 103 20 167/90 94 02/06/17 23:41 97.4 101 18 164/82 94 02/06/17 23:41 97.4 101 18 164/82 94 02/06/17 21:16 98.3 102 20 154/67 97 Nasal Cannula 3 02/06/17 20:06 97 18 99 Nasal Cannula 3 02/06/17 19:02 99 Nasal Cannula 3 02/06/17 19:02 18 99 Nasal Cannula 3 02/06/17 18:38 98.1 93 18 145/99 94 I/O 02/06/17 02/06/17 02/06/17 02/07/17 02/07/17 02/07/17 07:00 15:00 23:00 07:00 15:00 23:00 Intake Total 920 ml Output Total 1575 ml Balance -655 ml Intake Oral 920 ml IV Total 0 ml Output Urine Total 1575 ml Emesis 0 ml # Voids 1 # Bowel Movements 0 Result Diagram: 02/07/17 0751 02/07/17 0721 Imaging Last Impressions Chest X-Ray 02/06/17 7866 Signed Impressions: Service Date/Time: Monday, February 06, 2017 18:46 - CONCLUSION: Slight linear atelectasis is seen left lung base. Shirley Brasher MD Head CT 02/06/17 0000 Signed Impressions: Service Date/Time: Monday, February 06, 2017 19:28 - CONCLUSION: Unremarkable study. Shirley Brasher MD Objective Remarks GENERAL: Well-nourished, well-developed middle aged female patient in [facility]. SKIN: Warm and dry. No rash. HEENT: Normocephalic. Atraumatic.Pupils equal and round. Mucous membranes pink and moist. NECK: Supple. Trachea midline. CARDIOVASCULAR: Regular rate and rhythm. S1, S2 noted. No murmur appreciated. RESPIRATORY: No accessory muscle use. Clear to auscultation. Breath sounds equal bilaterally. GASTROINTESTINAL: Abdomen soft, non-tender, nondistended. Normoactive bowel sounds x4. MUSCULOSKELETAL: No obvious deformities. 1+bilateral lower extremity pitting edema. Right cervical paraspinous muscles mildly tender to palpation. No cervical/thoracic bony point tenderness. Neck with limited ROM secondary to pain. NEUROLOGICAL: AAOx3. No obvious cranial nerve deficits. Motor grossly within normal limits. 5/5 muscle strength in bilateral upper and lower extremities. Normal speech. PSYCHIATRIC: Tearful and anxious mood; insight and judgment normal. Medications and IVs Current Medications Medications (Trade) Dose Ordered Sig/Sofía Route Start Time Stop Time Status Last Admin (Zyloprim) 100 mg DAILY PO 02/07/17 09:00 02/07/17 08:58 (Catapres) 0.2 mg BID PO 02/07/17 09:00 02/07/17 09:00 (Neurontin) 600 mg BID PO 02/07/17 09:00 02/07/17 09:00 (Glucotrol) 5 mg BIDAC PO 02/07/17 07:00 02/07/17 09:00 (LaMICtal) 100 mg DAILY PO 02/07/17 09:00 02/07/17 09:00 (Roxicodone) 5 mg Q3H PRN PO 02/06/17 22:00 02/07/17 08:56 (Inderal) 10 mg Q12HR PO 02/07/17 09:00 02/07/17 09:06 (SEROquel) 200 mg HS PO 02/07/17 21:00 (Diovan) 160 mg DAILY PO 02/07/17 09:00 02/07/17 08:59 (Isoptin Sr) 240 mg DAILY PO 02/07/17 09:00 02/07/17 09:06 Patient Own Medication PT OWN MED: (Brexpiprazole (Rexulti... DAILY PO 02/07/17 09:00 Hold Patient Own Medication PT OWN MED: (Memantine-Donepezil (Namzaric) 28-10... HS PO 02/07/17 21:00 Future Hold (Pravachol) 40 mg HS PO 02/07/17 21:00 (NS Flush) 2 ml UNSCH PRN IV FLUSH 02/06/17 22:15 (NS Flush) 2 ml BID IV FLUSH 02/07/17 09:00 02/07/17 08:58 (Lovenox Inj) 30 mg Q24H SQ 02/06/17 23:00 02/06/17 22:56 (Narcan Inj) 0.4 mg UNSCH PRN IV 02/06/17 22:15 (Margret-Colace) 1 tab BID PO 02/07/17 09:00 (Milk Of Magnesia Liq) 30 ml Q12H PRN PO 02/06/17 22:15 (Senokot) 17.2 mg Q12H PRN PO 02/06/17 22:15 (Dulcolax Supp) 10 mg DAILY PRN RECTAL 02/06/17 22:15 (Lactulose Liq) 30 ml DAILY PRN PO 02/06/17 22:15 Urinary Catheter: Yes Assessment to: Continue A/P Problem List: (1) Altered mental status ICD Code: R41.82 Status: Acute (2) Edema ICD Code: R60.9 Status: Chronic (3) Acute renal failure ICD Code: N17.9 Status: Acute Assessment and Plan 61-year-old female with history of Lewy body dementia on hospice, hypertension, hx uterine cancer, DM, bipolar disorder, chronic pain, presents with a 2 day history of AMS Acute Toxic Encephalopathy: suspect secondary to multiple sedating medications for chronic pain and psychiatric disorder, with recently increase dose of oral morphine. S/p Narcan in the ED with improvement. -Head CT and CXR images reviewed, no acute findings -UA negative -Continue to hold oral morphine -minimize sedating medications -monitor neuro checks -patient appears improved, now AAOx3 -consult PT SIRS: patient meets SIRS criteria with +leukocytosis WBC 13.8K and tachycardia HR >100. Unclear etiology. S/p IV Vanco/Zosyn in ER however no obvious source of infection. -CXR and UA unremarkable -Blood cultures collected and pending -monitor for fevers -monitor CBC, leukocytosis improving OWEN: Cr 2.51 upon arrival, previously 0.83 in December 2016. Suspect secondary to dehydration in combination with diuretics. -hold patient's lasix for now -give gentle IVF -repeat BMP in am Headache and Neck Pain: suspect secondary to acute on chronic pain with recent fall. Likely cervical sprain with +muscle spasms on exam. -check cervical spine xray -apply heating pad -give oxycodone prn -restart patient's Mobic and flexeril prn spasms Accelerated Hypertension with Hypertensive Urgency: BP 212/99 today, suspect secondary to anxiety/pain, however also likely contributing to headache. -restart patient's home meds including valsartan, verapamil, clonidine, propranolol -monitor BP, adjust antihypertensives as needed Diabetes Mellitus with Neuropathy: chronic -continue patient's gabapentin and glipizide -monitor accu-checks and cover with SSI Chronic Lower Extremity Edema: no reported hx of CHF. -hold patient's lasix with OWEN as above -elevate lower extremities -apply compression stockings Lewy Body Dementia: chronic, on hospice -continue patient's home medications including Memantine-Donepezil -continue outpatient f/up with neurology Bipolar Disorder/Anxiety: patient anxious and tearful on exam today -continue patient's home medications including seroquel, brexpiprazole, ativan prn -continue outpatient f/up with psychiatry DVT Prophylaxis: teds Discharge Planning Not yet ready for discharge. Hopefully discharge tomorrow if AMS continues to improve, BP improves, and pain fairly controlled. Problem Qualifiers (1) Altered mental status: Qualified Code: R41.82 - Altered mental status, unspecified altered mental status type (2) Acute renal failure: Qualified Code: N17.9 - Acute renal failure, unspecified acute renal failure type Parul Riggs PA-C Feb 07, 2017 9:56 am
[2017-02-07] MEDS ORDERED: SODIUM CHLORID 0.9% 500 ML INJ 500 ML IV SCH (10:00)
--- NOTE | 2017-02-07 11:28 | RADRPT ---
EXAM DATE/TIME: 02/07/2017 10:51 [facility] COMPARISON: No previous studies available for comparison. INDICATIONS : Left ankle pain, fall. MEDICAL HISTORY : Dementia. Hypertension. Diabetes mellitus type 2.Cervical cancer. Uterine cancer. SURGICAL HISTORY : Cholecystectomy. Hysterectomy. ENCOUNTER: Initial ACUITY: 1 day PAIN SCORE: 7/10 LOCATION: Left ankle FINDINGS: Three view exam was performed of the left ankle. The bony structures are in normal alignment. No ev idence of fracture, or dislocation. Marked soft tissue swelling laterally. Ossific fragment distal to the tip of the lateral malleolus and medial malleolus likely old fractures. The ankle mortise is in tact. No radiopaque foreign bodies are seen. Bony mineralization is normal. CONCLUSION: Unremarkable examination of the left ankle except for marked soft tissue swelling. Tamir Rubio MD on February 07, 2017 at 11:25 Board Certified Radiologist. This report was verified electronically.
--- NOTE | 2017-02-07 11:29 | RADRPT ---
EXAM DATE/TIME: 02/07/2017 10:55 [facility] COMPARISON: No previous studies available for comparison. INDICATIONS : Left foot pain, fall. MEDICAL HISTORY : Dementia. Hypertension. Diabetes mellitus type 2.Cervical cancer. Uterine cancer. SURGICAL HISTORY : Cholecystectomy. Hysterectomy. ENCOUNTER: Initial ACUITY: 1 day PAIN SCORE: 5/10 LOCATION: Left lateral foot FINDINGS: Three view examination of the left foot demonstrates no soft tissue swelling, dislocation, or fractur e. The tarsal bones appear intact. The interphalangeal and metatarsophalangeal joints are intact. The calcaneus is intact. Bony mineralization is normal. CONCLUSION: Unremarkable examination of the left foot. Tamir Rubio MD on February 07, 2017 at 11:27 Board Certified Radiologist. This report was verified electronically.
--- NOTE | 2017-02-07 11:37 | RADRPT ---
EXAM DATE/TIME: 02/07/2017 11:04 [facility] COMPARISON: No previous studies available for comparison. INDICATIONS : Neck pain, fall. MEDICAL HISTORY : Dementia. Hypertension. Diabetes mellitus type 2.Cervical cancer. Uterine cancer. SURGICAL HISTORY : Cholecystectomy. Hysterectomy. ENCOUNTER: Initial ACUITY: 1 day PAIN SCORE: 7/10 LOCATION: Left neck FINDINGS: Two projection examination was performed. There is normal alignment and curvature of the vertebral b odies down to the level of C7. No evidence of fracture or subluxation. Vertebral body height is yuli ntained. Degenerative changes are seen. The prevertebral soft tissues are of normal thickness. The atlanto-axial articulation is intact. CONCLUSION: Degenerative changes. Salvador Guillen MD on February 07, 2017 at 11:35 Board Certified Radiologist. This report was verified electronically.
[2017-02-07] MEDS: MELOXICAM 15 MG TAB PO SCH (11:53)
[2017-02-07] MEDS: INSULIN ASPART SUPPLEMENTAL SCALE SQ SCH ×3 (13:18→20:41)
--- NOTE | 2017-02-07 19:47 | EKG ---
Date Performed: 02/06/2017 Time Performed: 19:45:07 PTAGE: 61 years EKG: Sinus rhythm NONSPECIFIC T-WAVE ABNORMALITY BORDERLINE ECG PREVIOUS TRACING : 01/02/2017 00.20 Since previous tracing, no significant change noted DOCTOR: Emmanuel Aguirre Interpretating Date/Time 02/07/2017 19:46:41
[2017-02-07] MEDS ORDERED: MEMANTINE DONEPEZIL PO SCH (21:00)
[2017-02-07] MEDS ORDERED: PRAVASTATIN SOD 40 MG TAB PO SCH (21:00)
[2017-02-07] MEDS ORDERED: QUEtiapine FUMARATE 200 MG TAB PO SCH (21:00)
[2017-02-07] MEDS: ENOXAPARIN SODIUM 30 MG/0.3 ML SYRINGE SQ SCH (23:21)
[2017-02-08 03:14] VITALS: BP 156/94; PULSE 90; RESP 18; TEMP 96.5; O2SAT 94
[2017-02-08] MEDS: glipiZIDE 5 MG TAB PO SCH (06:08)
[2017-02-08] MEDS: INSULIN ASPART SUPPLEMENTAL SCALE SQ SCH (06:16)
[2017-02-08 07:31] VITALS: BP 211/98; PULSE 89; RESP 19; TEMP 98.1; O2SAT 96
[2017-02-08] MEDS: VALSARTAN 160 MG TAB PO SCH (08:22)
[2017-02-08] MEDS: VERAPAMIL HCL 240 MG SUSTAINED RELEASE TAB PO SCH (08:22)
[2017-02-08] MEDS: SODIUM CHLORIDE 0.9% FLUSH 10 ML FLUSH IV FLUSH SCH (08:22)
[2017-02-08] MEDS: DOCUSATE SODIUM 50 MG/SENNA 8.6 MG TAB PO SCH (08:22)
[2017-02-08] MEDS: MELOXICAM 15 MG TAB PO SCH (08:22)
[2017-02-08] MEDS: GABAPENTIN 300 MG CAP PO SCH (08:22)
[2017-02-08] MEDS: lamoTRIgine 100 MG TAB PO SCH (08:22)
[2017-02-08] MEDS: ALLOPURINOL 100 MG TAB PO SCH (08:23)
[2017-02-08] MEDS: cloNIDine HCL 0.2 MG TAB PO SCH (08:23)
[2017-02-08] MEDS: PROPRANOLOL HCL 10 MG TAB PO SCH (08:23)
[2017-02-08] MEDS ORDERED: PROPRANOLOL HCL 40 MG TAB PO SCH (09:15)
[2017-02-08 09:45] LABS: AUTOMATED NEUTROPHIL # 5.8 TH/MM3 (1.8-7.7); BASOPHIL # 0.1 TH/MM3 (0-0.2); BASOPHIL % 0.6 % (0.0-2.0); EOSINOPHIL # 0.4 TH/MM3 (0-0.4); EOSINOPHIL % 4.1 % (0.0-4.0); HEMATOCRIT 38.3 % (35.0-46.0); HEMO FLAGS DIFF FINAL; LYMPH % 25.8 % (9.0-44.0); LYMPHOCYTE # 2.4 TH/MM3 (1.0-4.8); MEAN CELL VOLUME 87.5 FL (80.0-100.0); MEAN CORPUSCULAR HGB CONC 34.3 % (32.0-36.0); MONO % 7.1 % (0.0-8.0); NEUT % 62.4 % (16.0-70.0); PLATELET COUNT 242 TH/MM3 (150-450); RED BLOOD COUNT 4.38 MIL/MM3 (4.00-5.30); WHITE BLOOD COUNT 9.4 TH/MM3 (4.0-11.0)
[2017-02-08 10:08] LABS: BICARBONATE 30.2 MEQ/L (21.0-32.0)
--- NOTE | 2017-02-08 10:14 | HHI.PR ---
Subjective Remarks Follow-up for altered mental status and dehydration. The patient is seen with her significant other/caregiver at bedside. She complains of some cervical pain , but states that neck and back pain are chronic. Her significant other states that she was on morphine 15 mg, and was recently increased to 30 mg on Tuesday , after which she had acute altered mental status. They plan to go back to taking previous dose of oxycodone. He would like to go back on hospice at discharge. They have a walker and wheelchair at home, but she feels like she can ambulate safely. She's been tolerating oral intake. She reports normal bowel movements. The patient is asking to go home today. Objective Vitals Vital Signs Date Time Temp Pulse Resp B/P Pulse Ox O2 Delivery O2 Flow Rate FiO2 02/08/17 07:31 98.1 89 19 211/98 96 02/08/17 03:14 96.5 90 18 156/94 94 02/07/17 23:36 97.7 89 18 166/78 96 02/07/17 20:49 98.5 70 20 100/58 97 02/07/17 19:53 97.7 96 20 196/100 97 02/07/17 16:04 98.7 88 17 209/100 96 02/07/17 12:22 98.0 93 20 144/82 97 I/O 02/07/17 02/07/17 02/07/17 02/08/17 02/08/17 02/08/17 07:00 15:00 23:00 07:00 15:00 23:00 Intake Total 920 ml Output Total 1575 ml 1600 ml Balance -655 ml -1600 ml Intake Oral 920 ml IV Total 0 ml Output Urine Total 1575 ml 1600 ml Emesis 0 ml # Voids 1 # Bowel Movements 0 Result Diagram: 02/08/17 0835 02/07/17 0721 Imaging Last Impressions Foot X-Ray 02/07/17 0000 Signed Impressions: Service Date/Time: Tuesday, February 07, 2017 10:55 - CONCLUSION: Unremarkable examination of the left foot. Tamir Rubio MD Cervical Spine X-Ray 02/07/17 0000 Signed Impressions: Service Date/Time: Tuesday, February 07, 2017 11:04 - CONCLUSION: Degenerative changes. Salvador Guillen MD Ankle X-Ray 02/07/17 0000 Signed Impressions: Service Date/Time: Tuesday, February 07, 2017 10:51 - CONCLUSION: Unremarkable examination of the left ankle except for marked soft tissue swelling. Tamir Rubio MD Chest X-Ray 02/06/17 1847 Signed Impressions: Service Date/Time: Monday, February 06, 2017 18:46 - CONCLUSION: Slight linear atelectasis is seen left lung base. Shirley Brasher MD Head CT 02/06/17 0000 Signed Impressions: Service Date/Time: Monday, February 06, 2017 19:28 - CONCLUSION: Unremarkable study. Shirley Brasher MD Objective Remarks GENERAL: Well-developed well-nourished. In no acute distress. SKIN: Warm and dry. No lesions noted. HEENT: Normocephalic. Pupils equal and round. Mucous membranes pink and moist. CARDIOVASCULAR: Regular rate and rhythm. No murmur appreciated. RESPIRATORY: No accessory muscle use. Clear to auscultation. Breath sounds equal bilaterally. GASTROINTESTINAL: Abdomen soft, non-tender, nondistended. Bowel sounds x4. MUSCULOSKELETAL: No obvious deformities. No clubbing or cyanosis. Trace nonpitting lower extremity edema. NEUROLOGICAL: Awake and alert. Moves upper and lower extremities spontaneously. Normal speech. Strength 4/5 in all extremities. PSYCHIATRIC: Appropriate mood and affect; insight and judgment fair. A/P Problem List: (1) Altered mental status ICD Code: R41.82 Status: Acute (2) Edema ICD Code: R60.9 Status: Chronic (3) Acute renal failure ICD Code: N17.9 Status: Acute Assessment and Plan 61-year-old female with history of Lewy body dementia on hospice, hypertension, hx uterine cancer, DM, bipolar disorder, chronic pain, presents with a 2 day history of AMS Acute Toxic and metabolic Encephalopathy: suspect secondary to multiple sedating medications for chronic pain and psychiatric disorder, with recently increase dose of oral morphine. S/p Narcan in the ED with improvement. Patient acutely dehydrated that admission as well. -IV hydration -Continue to hold oral morphine -minimize sedating medications -monitor neuro checks -patient appears improved, now AAOx3 -consulted PT SIRS: patient met SIRS criteria with +leukocytosis WBC 13.8K and tachycardia HR >100. No clear infectious source. Afebrile. -CXR and UA unremarkable -Blood cultures with NGTD -monitor for fevers or further signs of infection -Leukocytosis resolved on repeat CBC OWEN: Cr 2.51 upon arrival, previously 0.83 in December 2016. Suspect secondary to dehydration in combination with diuretics. Improved -hold patient's lasix for now -Given IVF, creatinine has improved to baseline, resolved Headache and Neck Pain: suspect secondary to acute on chronic pain with recent fall. Likely cervical sprain with +muscle spasms on exam. -checked cervical spine xray which showed chronic degenerative changes in no acute process -apply heating pad -give oxycodone prn -Resumed patient's Mobic and flexeril prn spasms Accelerated Hypertension: BP is labile. The patient states that they never been able to control her blood pressure. -Continue patient's home meds including valsartan, verapamil, clonidine, propranolol -Increase propranolol -Monitor BP and continue outpatient follow up for continued medication monitoring and dose adjustments Diabetes Mellitus with Neuropathy: chronic -continue patient's gabapentin and glipizide -monitor accu-checks and cover with SSI Chronic Lower Extremity Edema: no reported hx of CHF. Mild. -hold patient's lasix with OWEN as above -elevate lower extremities -apply compression stockings Lewy Body Dementia: chronic, on hospice -continue patient's home medications including Memantine-Donepezil -continue outpatient f/up with neurology Bipolar Disorder/Anxiety: Chronic. -continue patient's home medications including seroquel, brexpiprazole, ativan prn -continue outpatient f/up with psychiatry Transaminitis: Mildly elevated on previous admissions. Transaminases were acutely elevated on admission, but are trending down. -Outpatient GI follow-up DVT Prophylaxis: teds Discharge Planning Discussed rehabilitation placement, the patient and significant other/caregiver at bedside decline and wish to resume hospice care at home at discharge. D/W case management. Anticipate discharge with hospice later today if BP is improved. Problem Qualifiers (1) Altered mental status: Qualified Code: R41.82 - Altered mental status, unspecified altered mental status type (2) Acute renal failure: Qualified Code: N17.9 - Acute renal failure, unspecified acute renal failure type Nate Garay Feb 08, 2017 10:14
[2017-02-08] MEDS ORDERED: PROP40TA3 PO (10:15)
[2017-02-08 10:22] VITALS: BP 162/83; PULSE 82
== END 2017-02-08 15:48 | disposition home or self-care (01) | DRG 92 ==
LOC: NEPE 18:29 → NEDA 20:55 → NEPGCP 23:24
PROVIDERS: ADMIT Hospitalist; ATTEND Hospitalist
PROC: 0T9B70Z Drainage of Bladder with Drainage Device, Via Natural or Artificial Opening (ICD-10-PCS; principal; 2017-02-06)
DX: G92 Toxic encephalopathy (principal); N17.9 Acute kidney failure, unspecified; E11.40 Type 2 diabetes mellitus with diabetic neuropathy, unspecified; L03.115 Cellulitis of right lower limb; J98.11 Atelectasis; L03.116 Cellulitis of left lower limb; G31.83 Neurocognitive disorder with Lewy bodies; T40.2X5A Adverse effect of other opioids, initial encounter; F02.80 Dementia in other diseases classified elsewhere, unspecified severity, without behavioral disturbance, psychotic disturbance, mood disturbance, and anxiety; I10 Essential (primary) hypertension; R41.82 Altered mental status, unspecified; R74.0 Nonspecific elevation of levels of transaminase and lactic acid dehydrogenase [LDH]; F41.9 Anxiety disorder, unspecified; E78.5 Hyperlipidemia, unspecified; R60.0 Localized edema; F31.9 Bipolar disorder, unspecified; Z85.42 Personal history of malignant neoplasm of other parts of uterus; E78.00 Pure hypercholesterolemia, unspecified; K21.9 Gastro-esophageal reflux disease without esophagitis; K44.9 Diaphragmatic hernia without obstruction or gangrene; G47.30 Sleep apnea, unspecified; Z87.891 Personal history of nicotine dependence; E86.0 Dehydration; R51 Headache; Y92.009 Unspecified place in unspecified non-institutional (private) residence as the place of occurrence of the external cause; S13.4XXA Sprain of ligaments of cervical spine, initial encounter; W18.30XA Fall on same level, unspecified, initial encounter; I16.0 Hypertensive urgency
CPT/HCPCS: 70450; 71010; 72040; 73610; 73630; 80048; 80053; 81001; 82948; 83605; 83735; 83880; 85025; 85610; 85730; 87040; 93005; 96374; J1650; J1815; J2310; J2543; J3370; J7040; J7050